=== PATIENT | female | born 1965 | race Asian ===

== ENCOUNTER 2020-01-06 08:45 | Outpatient (CLI) | payer BC ==
[2020-01-06 10:44] LABS: BASOPHILS # (AUTO) 0.1 /CMM (0.0-0.2); BASOPHILS % (AUTO) 0.9 % (0.0-2.0); EOSINOPHILS % (AUTO) 3.7 % (0.0-6.0); HEMATOCRIT 38 % (33-45); HEMOGLOBIN 12.6 g/dL (11.5-14.8); LYMPHOCYTES # (AUTO) 1.8 /CMM (0.8-4.8); LYMPHOCYTES % (AUTO) 30.3 % (20.0-44.0); MEAN CORPUSCULAR HGB CONC 33 g/dl (31.0-36.0); MEAN CORPUSCULAR VOLUME 93 fL (82-100); MONOCYTES # (AUTO) 0.4 /CMM (0.1-1.30); MONOCYTES % (AUTO) 6.5 % (2.0-12.0); NEUTROPHILS # (AUTO) 3.5 /CMM (1.8-8.9); NEUTROPHILS % (AUTO) 58.6 % (43.0-81.0); PLATELET COUNT (AUTO) 297 /CMM (150-450); RED BLOOD CELL COUNT(AUTO) 4.12 MIL/uL (4.0-5.2); WHITE BLOOD COUNT (AUTO) 5.9 K/uL (4.3-11.0)
[2020-01-06 12:45] LABS: APPEARANCE,URINE CLEAR (CLEAR); BILIRUBIN,URINE NEGATIVE (NEGATIVE); BLOOD, URINE NEGATIVE Ery/uL (NEGATIVE); COLOR,URINE YELLOW (YELLOW); KETONES,URINE NEGATIVE (NEGATIVE); LEUKOCYTE ESTERASE ,URINE NEGATIVE (NEGATIVE); NITRITE, URINE NEGATIVE (NEGATIVE); PH,URINE 5.5 (5.0-8.0); PROTEIN,URINE NEGATIVE (NEGATIVE); UGLUCOSE NEGATIVE (NEGATIVE); UROBILINOGEN,URINE 0.2 EU/dL (0.2)
[2020-01-06 13:20] LABS: ALBUMIN 3.8 g/dL (3.4-5.0); BILIRUBIN,TOTAL 0.6 mg/dL (0.2-1.0); CREATININE 0.7 mg/dL (0.6-1.3); POTASSIUM 3.9 mmol/L (3.5-5.1); TOTAL PROTEIN, SERUM 7.9 g/dL (6.4-8.2)
[2020-01-06 18:32] LABS: FREE T4 (FREE THYROXINE) 1.17 ng/dL (0.76-1.46); THYROID STIMULATING HORMONE 1.749 uIU/mL (0.358-3.74); URIC ACID 5.1 mg/dL (2.6-7.2)
[2020-01-07 08:12] LABS: FOLLICLE STIMULATION HORMONE 69.3 mIU/mL (.); PROLACTIN 11.5 ng/mL (4.8-23.3)
[2020-01-07 10:07] LABS: FOLIC ACID 15.7 ng/mL (>3.0)
== END 2020-01-06 23:59 | disposition home or self-care (01) ==
LOC: LAB 08:45
PROVIDERS: ATTEND Legal Medicine
DX: E78.5 Hyperlipidemia, unspecified (principal); E55.9 Vitamin D deficiency, unspecified; Z00.00 Encounter for general adult medical examination without abnormal findings
CPT/HCPCS: 36415; 80053-TC; 80061-TC; 81000-TC; 82306; 82728-TC; 83001; 83002; 83540-TC; 84146; 84439-TC; 84443-TC; 84550-TC; 85025-TC

== ENCOUNTER 2020-05-13 10:07 | Outpatient (CLI) | payer BC | END 2020-05-13 23:59 | disposition home or self-care (01) | LOC: MRI 10:07 | PROVIDERS: ATTEND Legal Medicine | DX: M77.31 Calcaneal spur, right foot (principal); M76.61 Achilles tendinitis, right leg; M62.561 Muscle wasting and atrophy, not elsewhere classified, right lower leg; M72.2 Plantar fascial fibromatosis | CPT/HCPCS: 73718-TC ==